=== PATIENT | female | born 1995 | race African-American/Black ===

== ENCOUNTER 2023-06-26 12:37 | Emergency (ER) | payer OTHER, SELFPAY ==
--- NOTE | ~2023-06-26 | XR_ITS ---
EXAMINATION: XR chest 1V portable DATE: 06/26/2023 18:04 INDICATION: Cough. TECHNIQUE: A single frontal view of the chest was obtained. COMPARISON: None. FINDINGS: There is no pneumonia, pleural effusion, or pneumothorax. The heart size is normal. IMPRESSION: 1. No acute cardiopulmonary disease. Reviewed, dictated and finalized at location E.
[2023-06-26 15:50] VITALS: O2SAT 100
[2023-06-26 15:51] VITALS: BP 126/87; PULSE 90; RESP 20; O2SAT 100
--- NOTE | 2023-06-26 17:02 | ED.ASTHMA ---
HPI - Asthma General Chief Complaint: Asthma Stated Complaint: asthma problems Time Seen by Provider: 06/26/23 16:36 History of Present Illness HPI Narrative: Patient is a 28-year-old female with history of asthma here with shortness of breath and wheeze. Patient states this feels very similar to her prior asthma exacerbations which seem to happen with seasonal changes. Symptoms began about 3 days ago, are worsening, not improved with her home albuterol inhaler. Patient does endorse a productive cough, denies fever, has been experiencing some chills. No known sick contacts. She has never been hospitalized or intubated for her asthma, has never had formal pulmonary function tests, her asthma is managed by her primary care doctor. She was diagnosed at the age of 21. She is unsure if she could be . Denies any chest pain, abdominal pain, urinary symptoms. Related Data Allergies Allergy/AdvReac Type Severity Reaction Status Date / Time Latex, Natural Rubber Allergy Rash Verified 06/26/23 15:52 pineapple Allergy Swelling Verified 06/26/23 15:52 Review of Systems Review of Systems: All systems reviewed & are unremarkable except as noted in HPI and below PMFSH Social History Social History Smoking status: Light tobacco smoker Alcohol intake: current Exam Narrative: GENERAL: Well-appearing, well-nourished, and in no acute distress. HEAD: Normocephalic, atraumatic. EYES: PERRLA and EOMI. ENT: Nares clear. Mucous membranes moist. NECK: Supple. CHEST: Bilateral wheeze,coarse sounding cough during exam. No respiratory distress. HEART: Regular rate and rhythm. Normal peripheral pulses. ABDOMEN: Soft, nontender, nondistended. EXTREMITIES: Normal range of motion. No edema. SKIN: Warm, dry, no rash. NEURO: No focal deficits. Alert and oriented x3. PSYCH: Normal mood and affect. Course Course Emergency Course: Chart review performed, patient here within a asthma flare up for the last 2 days. Has a cough, home inhaler not working. Triage vitals normal with an O2 sat 100% on room air. Patient seen evaluated, nontoxic appearing. Expect likely asthma exacerbation. Will do steroids, 1 hour breathing treatment continuous, chest x-ray, test. Chest x-ray to evaluate for possible coexisting pneumonia. Viral swab will additionally be ordered to rule out COVID, influenza, RSV. Patient agreeable to workup and plan. Patient re-evaluated, improved air movement after nebulizer. Chest x-ray negative for pneumonia, COVID, influenza, RSV negative. negative. Will start patient on a prednisone burst and she advises that she has enough albuterol at home. Advised to contact her primary care doctor tomorrow to coordinate close follow-up. Strict return precautions discussed. The results of pertinent diagnostic studies and exam findings were discussed. The patient?s provisional diagnosis and plan of care were discussed with the patient and present family. The patient and/or present family expressed understanding of the diagnosis and plan. The nurse was instructed to provide written instructions and appropriate follow-up information. The patient understands their need and responsibility to obtain additional follow-up as instructed. The risks of medications administered and prescribed were discussed with the patient and family present. Vital Signs Vital signs: Vital Signs Pulse Oximetry 100 06/26/23 15:50 Oxygen Delivery Room Air 06/26/23 15:50 Pulse Rate 90 06/26/23 17:24 Respiratory Rate 20 06/26/23 17:24 Blood Pressure 126/87 06/26/23 15:51 Pulse Oximetry 99 06/26/23 17:29 Oxygen Delivery Room Air 06/26/23 17:29 MDM - Asthma Lab Data Labs: Lab Results 06/26/23 Range/Units 17:19 Influenza A (RT-PCR) Negative (Negative) Influenza B (RT-PCR) Negative (Negative) RSV (RT-PCR) Negative (Negative) SARS-CoV-2 RNA (RT-PCR) Negative (Negative)
[2023-06-26] MEDS: predniSONE 20 MG TABLET 40 MG PO (17:07)
[2023-06-26] MEDS: IPRATROPIUM BR 0.02% INH SOLN 0.5 MG/2.5 ML VIAL 1.5 MG INHALATION (17:22)
[2023-06-26] MEDS: ALBUTEROL SULFATE NEB 2.5 MG/3 ML INH 15 MG INHALATION (17:22)
[2023-06-26 17:24] VITALS: PULSE 90; RESP 20
[2023-06-26 17:29] VITALS: O2SAT 99
[2023-06-26 18:17] LABS: Influenza A QL RT-PCR Negative (Negative); Influenza B QL RT-PCR Negative (Negative); RSV RNA, RT-PCR Negative (Negative); SARS-CoV-2 RNA PCR Negative (Negative)
[2023-06-26 19:05] VITALS: PULSE 98; RESP 20
[2023-06-26 19:06] VITALS: BP 122/79; PULSE 80; RESP 20; O2SAT 100
== END 2023-06-26 19:10 | disposition home or self-care (01) ==
PROVIDERS: Emergency Provider Student in an Organized Health Care Education/Training Program; PCP Internal Medicine Gastroenterology
DX: J45.901 Unspecified asthma with (acute) exacerbation (principal); Z20.822 Contact with and (suspected) exposure to COVID-19; F17.200 Nicotine dependence, unspecified, uncomplicated
CPT/HCPCS: 71045; 81025; 87637; 94640; 99283; J7512

== ENCOUNTER 2024-11-27 10:20 | Outpatient (CLI) | payer OTHER, SELFPAY ==
[2024-11-27 12:46] LABS: HIV 1/2 Ab P24 Ag Result Negative (Negative)
[2024-11-27 12:46] LABS: Hepatitis B Surface Antigen Negative (Negative); Syphilis IgG/IgM Antibody Non-Reactive (Nonreactive)
[2024-11-28 18:34] LABS: HSV 1 IgG, Type Spec Reactive (Non Reactive); HSV 2 IgG, Type Spec Non Reactive (Non Reactive)
== END 2024-11-27 10:21 | disposition home or self-care (01) ==
LOC: ANHLAB 10:21
PROVIDERS: PCP Family Medicine; Visit Provider Obstetrics & Gynecology
DX: Z11.3 Encounter for screening for infections with a predominantly sexual mode of transmission (principal)
CPT/HCPCS: 36415; 86593; 86695; 86696; 86703; 87340; G0432